=== PATIENT | male | born 1955 | race African-American/Black ===

== ENCOUNTER 2018-04-17 20:50 | Emergency (ER) | payer SELFPAY ==
[~2018-04-17] VITALS: Ht 167.6 cm; Wt 61.0 kg
[2018-04-18 01:10] VITALS: BP 121/74
[2018-04-18] MEDS ORDERED: TETRACAINE 0.5% OPHTH DROPS 4ML LEFTEYE ONE (02:30)
[2018-04-18] MEDS ORDERED: FLUORESCEIN SODIUM 1MG/STRIP LEFTEYE ONE (02:30)
== END 2018-04-18 09:03 | disposition home or self-care (01) ==
LOC: ER 04-18 09:03
DX: H10.9 Unspecified conjunctivitis (principal); F12.10 Cannabis abuse, uncomplicated; F17.200 Nicotine dependence, unspecified, uncomplicated
CPT/HCPCS: 99283